=== PATIENT | female | born 1945 | race Caucasian/White ===

== ENCOUNTER 2018-10-18 09:26 | Outpatient (CLI) | payer MEDICARE, OTHER ==
--- NOTE | 2018-10-18 14:59 | HP ---
HISTORY OF PRESENT ILLNESS: Ms. Sue Pinto is a very pleasant 72-year-old, who [facility] for evaluation of edema of the right and left lower extremities. 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 The patient states that she is non ambulatory, but can bear weight on the right lower extremity greater than the left. She states that she is able to pivot on both lower extremities. Ms. Pinto states that she developed footdrop on the right, followed by footdrop on the left and later developed edema of both lower extremities. The patient was referred to the [facility] by Dr. Davis on 10/04/2018. The patient states that she has tried to utilize compression garments in the past. She also states that she has been seen by Occupational Therapy for instruction in MLD and the application of compression wraps. PAST MEDICAL HISTORY: 1. 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 2. Hypothyroidism. 3. Osteoarthritis. 4. Urinary incontinence. PAST SURGICAL HISTORY: 1. Breast biopsy for benign disease. 2. Kyphoplasty in 2018. 3. Lumbar laminectomy in 2018. 4. Tonsillectomy. MEDICATIONS: 1. Tylenol. 2. Caltrate 600 plus vitamin D. 3. Cymbalta. 4. Lasix. 5. Neurontin. 6. Hydrocodone. 7. Celebrex. 8. Levothyroxine. 9. Multivitamin. 10. Prednisone. ALLERGIES: NO KNOWN DIAGNOSED ALLERGIES. SOCIAL HISTORY: Social history is negative for tobacco use. The patient admits to the consumption of 2 drinks per month for the past 15 years. FAMILY HISTORY: Family history is significant for diabetes mellitus. The patient states that she has a maternal aunt, who was diagnosed with diabetes mellitus. PHYSICAL EXAMINATION: VITAL SIGNS: Temperature 98.1, pulse 83, and blood pressure 131/62. GENERAL: A 72-year-old female, lying on stretcher in examination room, in no acute distress. HEENT: Normocephalic and atraumatic. NECK: No nuchal rigidity. CHEST: Clear to auscultation. CV: Regular rate and rhythm. ABDOMEN: Soft. EXTREMITIES: Edema of both lower extremities is present on exam today. Circumferences of the right lower extremity at the foot, ankle, calf, and knee are 25.5 cm, 29.5 cm, 38.5 cm, and 43 cm. Circumferences of the left lower extremity at the foot, ankle, calf, and knee are 25 cm, 28 cm, 39 cm, and 43.5 cm. No erythema of the right or left lower extremity is present on exam today. A dorsalis pedis pulse is palpable on the right and on the left. ASSESSMENT AND PLAN: 1. Lymphedema tarda. Arrangements will be made for the initiation of in-home lymphedema therapy with a pneumatic pump. As stated above, the patient states that she has tried to utilize compression garments in the past for the management of her right and left lower extremity swelling. The patient also has received a trial of compression wraps and instruction in MLD by Occupational Therapy. I will see Ms. Pinto again on 11/02/2018, at this time, arrangements will be continued for the initiation of in-home lymphedema therapy. The patient understands and is in agreement with the preceding treatment plan. 2. 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 3. Hypothyroidism. 4. Osteoarthritis. 5. Urinary incontinence. Job ID: [id number]
== END 2018-10-18 09:27 | disposition home or self-care (01) ==
LOC: WCC 09:26
PROVIDERS: ATTEND Family Medicine
DX: I89.0 Lymphedema, not elsewhere classified (principal); E03.9 Hypothyroidism, unspecified; M19.90 Unspecified osteoarthritis, unspecified site; R32 Unspecified urinary incontinence; G83.11 Monoplegia of lower limb affecting right dominant side; G83.12 Monoplegia of lower limb affecting left dominant side
CPT/HCPCS: 97139; 97602; G0463; 99203

== ENCOUNTER 2018-11-02 10:08 | Outpatient (CLI) | payer MEDICARE, OTHER ==
--- NOTE | 2018-11-02 11:35 | PRG ---
DATE OF SERVICE: HISTORY: Ms. Sue Pinto is a very pleasant 72-year-old, who presents to the [facility] for evaluation of edema of the right and left lower extremities. 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 The patient stated that she is nonambulatory, but can bear weight on the right lower extremity greater than the left. She stated that she is able to pivot on both lower extremities. The patient stated that she developed footdrop on the right, followed by footdrop on the left, and later developed edema of both lower extremities. The patient was referred to the [facility] by Dr. Davis on 10/04/2018. The patient stated that she has been prescribed compression garments in the past. She also stated that she had been seen by Occupational Therapy for instruction in MLD and in the application of compression wraps. PHYSICAL EXAMINATION: VITAL SIGNS: Temperature 98.5, pulse 77, and blood pressure 134/64. EXTREMITIES: Edema of both lower extremities is present on exam today. Circumferences of the right lower extremity at the ankle, calf and knee are 30 cm, 40 cm, and 42 cm. Circumferences of the left lower extremity at the ankle, calf and knee are 28.5 cm, 40 cm, and 40.5 cm. No erythema of the right or left lower extremities is present on exam today. Hyperpigmentation of the skin of the right and left lower legs is present secondary to hemosiderin deposition. ASSESSMENT AND PLAN: 1. Lymphedema tarda, stage II. Arrangements will continue for the initiation of in-home lymphedema therapy with a pneumatic pump. The patient has been treated with compression and elevation for the past 4 weeks with little to no improvement in the degree of her lymphedema. 2. 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 3. Hypothyroidism. 4. Osteoarthritis. 5. Urinary incontinence. Job ID: [id number]
== END 2018-11-02 10:09 | disposition home or self-care (01) ==
LOC: WCC 10:08
PROVIDERS: ATTEND Family Medicine
DX: I89.0 Lymphedema, not elsewhere classified (principal); E03.9 Hypothyroidism, unspecified; M19.90 Unspecified osteoarthritis, unspecified site; R32 Unspecified urinary incontinence; G83.10 Monoplegia of lower limb affecting unspecified side
CPT/HCPCS: 97139; G0463; 99213